=== PATIENT | female | born 1980 | race Caucasian/White ===

== ENCOUNTER 2017-03-31 08:27 | Emergency (ER) | payer OTHER ==
[~2017-03-31] VITALS: Ht 170.2 cm; Wt 86.2 kg
[2017-03-31 08:30] VITALS: Ht 170.2 cm; Wt 86.2 kg
[2017-03-31 09:58] LABS: ADD UMIC YES; UR ASCORBIC ACID NEGATIVE (NEGATIVE); UR BACTERIA FEW /HPF (NONE SEEN); UR BILIRUBIN (Dip) NEGATIVE (NEGATIVE); UR BLOOD (Dip) 1+ mg/dL (NEGATIVE); UR CLARITY CLEAR (CLEAR); UR COLOR YELLOW (YELLOW); UR GLUCOSE (Dip) NEGATIVE (NEGATIVE); UR KETONES (Dip) NEGATIVE (NEGATIVE); UR LEUKOCYTE ESTERASE (Dip) NEGATIVE Leu/ul (NEGATIVE); UR NITRITE (Dip) NEGATIVE (NEGATIVE); UR RBC 1 /HPF (0-5); UR SPECIFIC GRAVITY (Dip) 1.012 (1.003-1.030); UR SQUAMOUS EPITHELIAL CELL FEW /HPF (FEW); UR TOTAL PROTEIN (Dip) NEGATIVE (NEGATIVE); UR UROBILINOGEN (Dip) NEGATIVE (NEGATIVE)
--- NOTE | 2017-03-31 10:05 | ERD ---
ER Documentation Chief Complaint Chief Complaint "pressure" with urination and intermittent flank pain x 1 month HPI 36-year-old female presents emergency department and that she has pressure with urination, flank pain that is reproducing for about a month. She is also asking for a work note. Last menstrual period: 3 weeks ago. (stated that she has twins) A0. Denies headache, dizziness, blurry vision, neck pain, throat pain, difficulty swallowing, shoulder pain, chest pain, abdominal pain, nausea, vomiting, constipation, diarrhea, vaginal bleeding, vaginal discharge, being sexually active, hematuria, vaginal lesions, odorous vaginal discharge, trauma, injury, falls, recent travel, recent antibiotic use in the last 3 months , fever, chills, difficulty walking, numbness or tingling sensation. No past medical history. No surgical history. ROS All systems reviewed and are negative except as per history of present illness. Medications Home Meds Active Scripts Cyclobenzaprine Hcl* (Cyclobenzaprine Hcl*) 10 Mg Tablet, 10 MG PO Q12 Y for MUSCLE SPASMS, #15 TAB Prov:PASILABAN,KLAR F 03/31/17 Ibuprofen* (Motrin*) 800 Mg Tab, 800 MG PO Q8 Y for PAIN, #30 TAB Prov:PASILABAN,KLAR F 03/31/17 Allergies Allergies: Coded Allergies: No Known Allergy (Unverified , 03/31/17) PMhx/Soc Medical and Surgical Hx: pt denies Medical Hx History of Surgery: Yes (caesarian section) Hx Alcohol Use: No Hx Substance Use: No Hx Tobacco Use: No Smoking Status: Never smoker Physical Exam Vitals Vital Signs Date Time Temp Pulse Resp B/P Pulse Ox O2 Delivery O2 Flow Rate FiO2 03/31/17 08:30 97.9 81 18 147/87 99 Physical Exam Const: Well-appearing. Not in acute respiratory distress. Head: Atraumatic Eyes: Normal Conjunctiva ENT: Normal External Ears, Nose and Mouth. Neck: Full range of motion..~ No meningismus. Resp: Clear to auscultation bilaterally Cardio: Regular rate and rhythm, no murmurs Abd: Soft, non tender, non distended. Normal bowel sounds. There is no right upper/right lower/epigastric/left upper/left lower abdominal tenderness and likely palpation. Negative [place] sign (heel joint test). Negative psoas sign. Negative Rovsing's sign. Skin: No petechiae or rashes Back: No midline or flank tenderness. No CVA tenderness. Ext: No cyanosis, or edema. Negative straight leg test bilaterally. C-spine /T-spine/L-spine are in midline and is good and full range of motion and is no discoloration/bulging/deformity/point of tenderness. No saddle anesthesia. Neur: Awake and alert. Neurological deficits. Psych: Normal Mood and Affect Results 24 hrs Laboratory Tests Test 03/31/17 09:16 Urine Color YELLOW Urine Clarity CLEAR Urine pH 6.0 Urine Specific [place] 1.012 Urine Ketones NEGATIVEmg/dL Urine Nitrite NEGATIVEmg/dL Urine Bilirubin NEGATIVEmg/dL Urine Urobilinogen NEGATIVEmg/dL Urine Leukocyte Esterase NEGATIVELeu/ul Urine Microscopic RBC 1/HPF Urine Microscopic WBC 0/HPF Urine Squamous Epithelial Cells FEW/HPF Urine Bacteria FEW/HPF Urine Hemoglobin 1+mg/dL Urine Glucose NEGATIVEmg/dL Urine Total Protein NEGATIVEmg/dl Procedures/MDM POC urine : Negative. Urinalysis: Negative. I have low suspicion for pyelonephritis and nephrolithiasis given that the patient has no CVA tenderness, no fevers chills, no nausea and vomiting, denies blood in urine. I have low suspicion for abdominal aortic aneurysm given that it is a prescription of pain is not tearing or ripping, and patient is a low risk due to her age and is no history of hypertension, heart disease, and no family history of AAA, heart attack before age of 50. I have low suspicion for sciatica given that the patient has negative straight leg test bilaterally. Final diagnosis: Muscle spasm, flank pain Prescription: Motrin. Flexeril. Follow-up with PCP in the next 3-4 days. Come back here in the emergency department for any new symptoms or any worsening of symptoms. All questions and concerns are answered. She verbalized understanding and agreed with the plan of care. Hemodynamically stable on discharge. Departure Diagnosis: Primary Impression: Flank pain Additional Impression: Muscle spasm Condition: Stable Additional Instructions: Follow-up with PCP in the next 24-48 hours. Come back here in the emergency department for any new symptoms or any worsening of symptoms. All questions and concerns are answered. Patient and family member verbalized understanding and agreed with the plan of care. SOPHIE MAGAÑA Mar 31, 2017 10:05
[2017-03-31] MEDS ORDERED: IBUP800T25 PO (10:06)
[2017-03-31] MEDS ORDERED: CYCL-319 PO (10:06)
== END 2017-03-31 10:15 | disposition home or self-care (01) ==
LOC: FTE 08:27
DX: R10.9 Unspecified abdominal pain (principal); M62.838 Other muscle spasm
CPT/HCPCS: 81001; 87086; Z7502; 99283

== ENCOUNTER 2017-12-31 19:03 | Emergency (ER) | END 2017-12-31 21:54 | disposition left against medical advice (07) ==

== ENCOUNTER 2019-01-06 20:17 | Emergency (ER) | payer OTHER ==
[~2019-01-06] VITALS: Ht 165.1 cm; Wt 94.9 kg
[~2019-01-06 20:17] MED LIST: ALBU18HF INHALATION; BENZ-6 PO; CYCL10TA7 PO; IBUP800T48 PO
[2019-01-06 20:31] VITALS: BP 140/70; PULSE 98; RESP 19; Ht 165.1 cm; Wt 94.9 kg
== END 2019-01-06 21:44 | disposition home or self-care (01) ==
LOC: E/R 20:17
DX: R05 Cough (principal)
CPT/HCPCS: 99283